=== PATIENT | female | born 1955 | race African-American/Black ===

== ENCOUNTER 2016-08-24 18:23 | Observation (INO) | payer OTHER ==
[~2016-08-24] VITALS: Ht 154.9 cm; Wt 67.0 kg
[~2016-08-24 18:23] MED LIST: ASPI1TAB7 PO; LISI-360 PO; METF1000 PO; PNEU25IN IM; TETA1INJ4 IM; [UNRECOGNIZED DRUG - CODE]; [UNRECOGNIZED DRUG - CODE] FINGER L1
[2016-08-24 18:27] VITALS: BP 241/117; PULSE 72; RESP 16; TEMP 98.1; O2SAT 97
[2016-08-24] MEDS ORDERED: LISI10TA3 PO (19:00)
[2016-08-24] MEDS ORDERED: METF1000 PO (19:00)
[2016-08-24 19:06] LABS: AUTOMATED NEUTROPHIL # 3.8 TH/MM3 (1.8-7.7); BASOPHIL # 0.1 TH/MM3 (0-0.2); BASOPHIL % 0.7 % (0.0-2.0); EOSINOPHIL # 0.1 TH/MM3 (0-0.4); EOSINOPHIL % 0.9 % (0.0-4.0); HEMATOCRIT 41.1 % (35.0-46.0); HEMO FLAGS DIFF FINAL; LYMPH % 42.3 % (9.0-44.0); LYMPHOCYTE # 3.2 TH/MM3 (1.0-4.8); MEAN CELL VOLUME 81.6 FL (80.0-100.0); MEAN CORPUSCULAR HEMOGLOBIN 26.9 PG (27.0-34.0); MONO % 6.7 % (0.0-8.0); NEUT % 49.4 % (16.0-70.0); PLATELET COUNT 227 TH/MM3 (150-450); RED BLOOD COUNT 5.04 MIL/MM3 (4.00-5.30); RED CELL DISTRIBUTION WIDTH 13.7 % (11.6-17.2); WHITE BLOOD COUNT 7.7 TH/MM3 (4.0-11.0)
[2016-08-24 19:08] LABS: ANION GAP 8 MEQ/L (5-15); BICARBONATE 27.2 MEQ/L (21.0-32.0); BLOOD UREA NITROGEN 18 MG/DL (7-18); CHLORIDE 106 MEQ/L (98-107); GLOMERULAR FILTRATION RATE 97 ML/MIN (>89); POTASSIUM 3.9 MEQ/L (3.5-5.1); SODIUM (NA) 141 MEQ/L (136-145)
[2016-08-24 19:12] LABS: CREATINE KINASE 110 U/L (26-192)
--- NOTE | 2016-08-24 19:13 | PD ---
HPI Chief Complaint: Chest Pain Time Seen by Provider: 19:10 Travel History International Travel<30 days: No Contact w/Intl Traveler<30days: No Traveled to known affect area: No History of Present Illness HPI Patient comes in complaining of chest pain ongoing for approximately 7 days. Patient's pain is substernal without radiation. Patient reports associated headache with this and occasional shortness of breath. Patient states she's taken Aleve for this to help with her headache. Patient went to her primary care doctors today was sent to the emergency department further treatment and evaluation. Patient denies any diaphoresis, back pain, numbness tingling, nausea, vomiting, cough, abdominal pain, or fevers. Patient denies any history of cardiac issues or ever having a stress test. Patient states she did not take her hypertensive medication yet today and normally takes in the evening. PFSH Past Medical History Diabetes: Yes Hypertension: Yes Past Surgical History Section: Yes Hysterectomy: Yes Social History Alcohol Use: No Tobacco Use: No Substance Use: No Allergies-Medications (Allergen,Severity, Reaction): Coded Allergies: No Known Allergies (Unverified , 08/24/16) Reported Meds & Prescriptions Reported Meds & Active Scripts Active Reported Lisinopril 10 Mg Tab 10 Mg PO HS PRN Metformin (Metformin HCl) 1,000 Mg Tab 1,000 Mg PO BIDPC With meals Review of Systems Except as stated in HPI: all other systems reviewed are Neg Physical Exam Narrative GENERAL: Well-developed, overly nourished, in no acute distress, and non-ill appearing. SKIN: Warm and dry. HEAD: Atraumatic. Normocephalic. EYES: Pupils equal and round. EOMI. No scleral icterus. No injection or drainage. ENT: No nasal bleeding or discharge. Mucous membranes pink and moist. NECK: Trachea midline. Supple. No nuclear rigidity. CARDIOVASCULAR: Regular rate and rhythm. No murmur appreciated. RESPIRATORY: No accessory muscle use. No respiratory distress. Clear to auscultation. Breath sounds equal bilaterally. GASTROINTESTINAL: Abdomen soft, non-tender, nondistended. Hepatic and splenic margins not palpable. No pulsatile mass. MUSCULOSKELETAL: No obvious deformities. No clubbing. No cyanosis. No edema. Full range of motion. NEUROLOGICAL: Awake and alert. No obvious cranial nerve deficits. Motor grossly within normal limits. Normal speech. PSYCHIATRIC: Appropriate mood and affect; insight and judgment normal. Data Data Last Documented VS Vital Signs Date Time Temp Pulse Resp B/P Pulse Ox O2 Delivery O2 Flow Rate FiO2 08/24/16 20:05 81 20 173/87 99 Room Air 08/24/16 18:27 98.1 Orders Electrocardiogram (08/24/16 18:34) Complete Blood Count With Diff (08/24/16 18:34) Basic Metabolic Panel (Bmp) (08/24/16 18:34) Ckmb (Isoenzyme) Profile (08/24/16 18:34) Troponin I (08/24/16 18:34) Iv Access Insert/Monitor (08/24/16 18:34) Magnesium (Mg) (08/24/16 19:06) Prothrombin Time / Inr (Pt) (08/24/16 19:06) Act Partial Throm Time (Ptt) (08/24/16 19:06) Chest, Single Ap (08/24/16 19:06) Ecg Monitoring (08/24/16 19:06) Bilateral Bp Monitoring (08/24/16 19:06) Oximetry (08/24/16 19:06) Oxygen Administration (08/24/16 19:06) Aspirin Chew (Aspirin Chew) (08/24/16 19:15) Nitroglycerin 2% Oint (Nitroglycerin 2% (08/24/16 19:15) Sodium Chloride 0.9% Flush (Ns Flush) (08/24/16 19:15) CKMB (08/24/16 18:40) CKMB% (08/24/16 18:40) Hydralazine Inj (Apresoline Inj) (08/24/16 20:00) Metoprolol Tartrate (Lopressor) (08/24/16 20:00) Lisinopril (Prinivil) (08/24/16 20:00) Admit Order (Ed Use Only) (08/24/16 20:20) Place In Observation (08/24/16 20:20) Activity Bed Rest With Brp (08/24/16 20:20) Vital Signs (Adult) Q4H (08/24/16 20:20) Cardiac Rhythm .As Directed (08/24/16 20:20) ^ Notify Dr: Other .PRN (08/24/16 20:20) ^ Notify Dr. Parameters (08/24/16 20:20) Resp Oxygen Nasal Cannula (08/24/16 ) Ckmb (Isoenzyme) Profile (08/24/16 21:40) Ckmb (Isoenzyme) Profile (08/25/16 00:40) Troponin I (08/24/16 21:40) Troponin I (08/25/16 00:40) Electrocardiogram (08/24/16 21:40) Electrocardiogram (08/25/16 00:40) ^ Obtain (08/24/16 20:20) Sodium Chloride 0.9% Flush (Ns Flush) (08/24/16 20:30) Sodium Chloride 0.9% Flush (Ns Flush) (08/24/16 21:00) Circus Supervisor / Telemetry GEORGETTE.Q8H (08/24/16 20:20) Labs Laboratory Tests Test 08/24/16 08/24/16 18:40 19:24 White Blood Count 7.7 TH/MM3 Red Blood Count 5.04 MIL/MM3 Hemoglobin 13.5 GM/DL Hematocrit 41.1 % Mean Corpuscular Volume 81.6 FL Mean Corpuscular Hemoglobin 26.9 PG Mean Corpuscular Hemoglobin 33.0 % Concent Red Cell Distribution Width 13.7 % Platelet Count 227 TH/MM3 Mean Platelet Volume 9.1 FL Neutrophils (%) (Auto) 49.4 % Lymphocytes (%) (Auto) 42.3 % Monocytes (%) (Auto) 6.7 % Eosinophils (%) (Auto) 0.9 % Basophils (%) (Auto) 0.7 % Neutrophils # (Auto) 3.8 TH/MM3 Lymphocytes # (Auto) 3.2 TH/MM3 Monocytes # (Auto) 0.5 TH/MM3 Eosinophils # (Auto) 0.1 TH/MM3 Basophils # (Auto) 0.1 TH/MM3 CBC Comment DIFF FINAL Differential Comment Sodium Level 141 MEQ/L Potassium Level 3.9 MEQ/L Chloride Level 106 MEQ/L Carbon Dioxide Level 27.2 MEQ/L Anion Gap 8 MEQ/L Blood Urea Nitrogen 18 MG/DL Creatinine 0.74 MG/DL Estimat Glomerular Filtration 97 ML/MIN Rate Random Glucose 95 MG/DL Calcium Level 8.5 MG/DL Magnesium Level 2.2 MG/DL Total Creatine Kinase 110 U/L Creatine Kinase MB 1.9 NG/ML Troponin I LESS THAN 0.02 NG/ML Prothrombin Time 10.9 SEC Prothromb Time International 1.0 RATIO Ratio Activated Partial 25.4 SEC Thromboplast Time MDM Medical Decision Making Medical Screen Exam Complete: Yes Emergency Medical Condition: Yes Interpretation(s) EKG reviewed by Dr. Garvey, shows normal sinus rhythm with a ventricular rate is 78. No STEMI and no acute changes. Differential Diagnosis Acute coronary syndrome, uncontrolled hypertension, atypical chest pain, pneumonia, other Narrative Course 1943 patient reports improvement of her chest pain status post nitro paste being applied. Patient seen and examined. Initial laboratory and radiological studies were obtained and reviewed. Discussed patient with Dr. Pope, who is in agreement with plan of care and disposition. Patient will be placed in the chest pain center for further treatment and evaluation. Discussed all findings and plan of care with patient who is agreeable for admission. All questions were answered. Diagnosis Primary Impression: Chest pain Qualified Code: R07.9 - Chest pain, unspecified type Admitting Information Admitting Physician Requests: Observation Condition: Stable Randy Willoughby Aug 24, 2016 19:13
[2016-08-24] MEDS ORDERED: NITROGLYCERIN 2% OINT 1 GM PACKET TOP ONE (19:15)
[2016-08-24] MEDS ORDERED: SODIUM CHLORIDE 0.9% FLUSH 5 ML FLUSH IVF PRN ×2 (19:15→20:30)
[2016-08-24] MEDS ORDERED: ASPIRIN 81 MG CHEW TAB PO ONE (19:15)
[2016-08-24 19:19] VITALS: BP 190/143; PULSE 77; RESP 18; O2SAT 99
[2016-08-24 19:51] LABS: APTT (PATIENT) 25.4 SEC (24.3-30.1); PROTHROMBIN TIME - PATIENT 10.9 SEC (9.8-11.6)
--- NOTE | 2016-08-24 19:51 | RADRPT ---
EXAM DATE/TIME: 08/24/2016 19:24 [facility] COMPARISON: No previous studies available for comparison. INDICATIONS : Chest pressure for several days. MEDICAL HISTORY : Hypertension. SURGICAL HISTORY : None. ENCOUNTER: Initial ACUITY: 3 days PAIN SCORE: 2/10 LOCATION: Bilateral chest FINDINGS: A single view of the chest demonstrates the lungs to be symmetrically aerated without evidence of mas s, infiltrate or effusion. Left basilar subsegmental atelectasis. The cardiomediastinal contours are unremarkable. Osseous structures are intact. CONCLUSION: 1. Left basilar subsegmental atelectasis. 2. No pneumonia. Fermin Teixeira MD on August 24, 2016 at 19:49 Board Certified Radiologist. This report was verified electronically.
[2016-08-24 20:00] LABS: CKMB 1.9 NG/ML (0.5-3.6)
[2016-08-24] MEDS ORDERED: LISINOPRIL 20 MG TAB PO ONE (20:00)
[2016-08-24] MEDS ORDERED: METOPROLOL TARTRATE 50 MG TAB PO ONE (20:00)
[2016-08-24] MEDS ORDERED: hydrALAZINE HCL 20 MG/ML VIAL IV PUSH ONE (20:00)
[2016-08-24 20:05] VITALS: BP 173/87; PULSE 81; RESP 20; O2SAT 99
[2016-08-24] MEDS: SODIUM CHLORIDE 0.9% FLUSH 5 ML FLUSH IVF SCH (21:00)
[2016-08-24 22:43] VITALS: BP 142/94
[2016-08-24 23:01] LABS: CREATINE KINASE 96 U/L (26-192)
[2016-08-24 23:39] VITALS: PULSE 71
[2016-08-24 23:46] VITALS: BP 195/91; PULSE 69; RESP 18; O2SAT 97
[2016-08-25 00:37] VITALS: BP 189/84
[2016-08-25 01:07] LABS: CREATINE KINASE 114 U/L (26-192)
[2016-08-25 01:19] LABS: CKMB 1.5 NG/ML (0.5-3.6)
[2016-08-25 02:29] VITALS: BP_SYST 175; BP_DIAS 78; BP_DIAS 82; PULSE 68
[2016-08-25 02:30] VITALS: PULSE 70
[2016-08-25 06:36] VITALS: BP 160/72; PULSE 74; RESP 18; TEMP 97.6; O2SAT 97
[2016-08-25 06:45] VITALS: O2SAT 95
[2016-08-25 08:00] VITALS: PULSE 80
[2016-08-25] MEDS ORDERED: NITROGLYCERIN 0.4 MG SL 25 TABS/BTL SL PRN (09:00)
[2016-08-25] MEDS ORDERED: ACETAMINOPHEN 500 MG CPLT PO PRN (09:00)
[2016-08-25] MEDS ORDERED: ONDANSETRON HCL 4 MG/2 ML VIAL IV PRN (09:00)
[2016-08-25] MEDS ORDERED: ASPIRIN 325 MG TAB PO SCH (10:00)
[2016-08-25] MEDS ORDERED: metFORMIN HCL 500 MG TAB PO SCH (10:00)
[2016-08-25] MEDS ORDERED: LISINOPRIL 10 MG TAB PO SCH (10:00)
[2016-08-25] MEDS ORDERED: amLODIPine BESYLATE 5 MG TAB PO SCH (10:00)
[2016-08-25] MEDS: SODIUM CHLORIDE 0.9% FLUSH 5 ML FLUSH IVF SCH (10:12)
--- NOTE | 2016-08-25 10:46 | RADRPT ---
EXAM DATE/TIME: 08/25/2016 08:16 [facility] COMPARISON: No previous studies available for comparison. INDICATIONS : Substernal chest pain for 7 days. Angina DOSE: 25.8 mCi Tc99m Myoview at stress 8.2 mCi Tc99m Myoview at rest REST HEART RATE: 86 BPM TARGET HEART RATE: 137 BPM MAX HEART RATE: 144 BPM REST BLOOD PRESSURE: 182/78 mmHg MAX BLOOD PRESSURE: 250/90 mmHg EJECTION FRACTION: 65% MEDICAL HISTORY : Hypertension. Diabetes mellitus type 2. SURGICAL HISTORY : Hysterectomy. section. ENCOUNTER: Initial ACUITY: 1 week PAIN SCALE: 4/10 LOCATION: Substernal chest TECHNIQUE: The patient underwent upright treadmill exercise in the chest pain center. Continuous ECG tracing wa s monitored during stress. Gated SPECT imaging was performed after stress, and conventional SPECT im aging was performed at rest. The examination was performed on a SPECT/CT scanner, both attenuation-c orrected and non-corrected datasets were reviewed. FINDINGS: DISTRIBUTION: The maximum perfused segment at stress is in the lateral wall. PERFUSION STUDY: The pattern of perfusion at stress is within normal limits. GATED STUDY: There is intact wall motion and thickening without hypokinetic or dyskinetic segments. CONCLUSION: 1. Unremarkable myocardial perfusion scan. RISK CATEGORY: Low (<1% Annual Mortality Rate) Quinton Gasca MD on August 25, 2016 at 10:43 Board Certified Radiologist. This report was verified electronically.
--- NOTE | 2016-08-25 11:07 | HHI.DCPOC ---
Discharge Care Plan Diagnosis: (1) Atypical chest pain (2) Hypertension Goals to Promote Your Health * To prevent worsening of your condition and complications * To maintain your health at the optimal level Directions to Meet Your Goals Take your medications as prescribed Follow your dietary instruction Follow activity as directed Keep your appointments as scheduled Take your immunizations and boosters as scheduled If your symptoms worsen call your PCP, if no PCP go to Urgent Care Center or Emergency Room Smoking is Dangerous to Your Health. Avoid second hand smoke Call the 24-hour hour crisis hotline for domestic abuse at Gena Pelaez Aug 25, 2016 11:07
[2016-08-25] MEDS ORDERED: AMLO5 PO (11:16)
[2016-08-25] MEDS ORDERED: METO-309 PO (11:16)
[2016-08-25] MEDS ORDERED: LISI-515 PO (11:16)
[2016-08-25] MEDS ORDERED: METF500T PO (11:16)
--- NOTE | 2016-08-25 11:59 | MH ---
cc: FREDDIE THOMAS MD DATE OF ADMISSION: 08/24/2016 DATE OF : 1955 CHIEF COMPLAINT Chest pressure. HISTORY OF PRESENT ILLNESS This is a 61-year-old patient with known hypertension and diabetes presents to the emergency room by the direction of her primary care provider. The patient has been experiencing constant chest pressure located in her left anterior chest wall and epigastric area. This has been constant since last . There is no associated symptoms. The patient felt that she was developing a "lung infection" as follows with her primary care provider yesterday, at that time her blood pressure was elevated and EKG was completed which the primary physician was concerned about and directed her to follow with followup in the emergency room. No known precipitating factors or relieving factors. PAST MEDICAL HISTORY: Past medical history includes diabetes Hypertension Fibroids. PAST SURGICAL HISTORY Partial hysterectomy in 2000 She has had two C-sections She did have one blood transfusion with her partial hysterectomy surgery. FAMILY HISTORY: The family history is noncontributory for any early onset cardiovascular disease, although multiple people in her family due to have diabetes and high blood pressure. SOCIAL HISTORY She is active. She has a lifelong nonsmoker. Denies any alcohol or illegal drug use. Does have known hypertension, diabetes. No known hyperlipidemia. Her primary care provider is Dr. Grant. PAST CARDIAC TESTING: None. MEDICATIONS Current medications include 1. Lopressor 50 mg daily. 2. Norvasc 5 mg daily. 3. Lisinopril 20 mg b.i.d. 4. Metformin 500 mg b.i.d. 5. In regards to the Metoprolol, Norvasc and lisinopril. These were all new prescriptions and or changes to her medication regimen that was ordered yesterday while at her primary care provider and she has not yet to filled these medications. Prior to these new changes in her medication she was taking. 6. Lisinopril 10 mg daily and metformin 500 mg b.i.d. ALLERGIES no known allergies to medication. REVIEW OF SYSTEMS GENERAL: Reports occasional fatigue. She believes this is the possibly due to her blood sugar she tries to eat on a regular basis to normalize her sugar although when she is unable to she noticed she does become fatigued. She has not had any recent illness, fevers, chills or change in appetite. HEAD, EYES, EARS, NOSE, AND THROAT: Reports an occasional headache and back of her head and neck area also relates this to when she does not eat and when she eats the headaches generally subsides there is no visual changes or dysphagia. CARDIOVASCULAR SYSTEM: As stated above. Denies any intermittent leg pain or dizziness. RESPIRATORY: No shortness of breath, cough, wheeze, hemoptysis or asthma. ABDOMEN: No bowel changes, diarrhea, constipation pain distension, blood in stool or dark stool or nausea or vomiting. She has never had a colonoscopy however recently has been approved for affordable care insurance and plans have a colonoscopy as her grandmother is suspected of having colon cancer although did not tell anyone she had colon cancer and therefore she has a family history. GENITOURINARY: No dysuria or urgency, frequency or hematuria. EXTREMITIES: No lower leg edema of pain. MUSCULOSKELETAL: No change in range of motion or discomfort. NEUROLOGIC: There is no change in motor or sensory deficits, difficulty with balance, change in memory loss of consciousness. PSYCHIATRIC: Psych no anxiety or depression. SKIN: There are no concerning lesions or rashes. PHYSICAL EXAMINATION VITAL SIGNS: Temperature 98.1, pulse 72, respiratory 16, pulse oximetry 97% on room air, 160/72 blood pressure is noted blood pressure on admission 241/117 anything 190/143. IN GENERAL: She is alert, well-nourished, well-developed in no acute distress pleasant -[place] female. HEAD, EYES, EARS, NOSE, AND THROAT: Head: Normocephalic, atraumatic. Eyes: Sclerae clear. Conjunctivae without injection. Pupils are equal and round. NECK: Neck is supple. Trachea is midline. CARDIOVASCULAR SYSTEM: Shows regular rate and rhythm without murmur or gallop. No JVD. S1-S2. No S3. No ST or cardial RESPIRATORY: Clear lungs throughout bilateral with no crackles, wheeze or rhonchi. She has symmetrical chest rise. Able to speak in full sentences with a symmetrical chest rise. ABDOMEN: Abdomen is soft, nontender, nondistended. Positive bowel tones. No masses. EXTREMITIES: Pulses +2 x4. There is no dependent edema. MUSCULOSKELETAL: No obvious deformities. She is nontender, normal tone x4. NEUROLOGIC: Cranial nerves II-XII grossly intact. Motor strength 5/5 gait is within normal limits. PSYCHIATRIC: Psych she is alert, oriented x3 has a pleasant affect appropriate to mood, insight and judgment. SKIN: Normal turgor, normal texture. No lesions or rashes. Skin is warm and dry. LABORATORY CBC is unremarkable. Chemistry is unremarkable. Three sets of cardiac enzymes are negative. Coagulation is unremarkable. Chest x-ray read by the radiologist has conclusion of left bibasilar segmental atelectasis. No pneumonia Three EKG's showed normal sinus rhythm with no ST or T segment changes. Two out of her three EKG's do show a Q-wave in V1 and V2 this is unchanged from of EKG's we reviewed in 2013. ASSESSMENT/PLAN 1. Chest pain. Patient has been admitted to the chest pain center. She was ruled out with three sets of EKG's, cardiac enzymes and seen evaluated by Dr. Freddie Thomas. It has been discussed with the patient and advised for her to have a nuclear treadmill study test this a.m. and she is agreeable to this plan of care actually is a stress test is unremarkable she will be encouraged to follow up with her primary care provider in regards to her hypertension. She is agreeable to this plan of care. 2. Hypertension. Have will continue to monitor the patient's blood pressure and her lisinopril amlodipine have been reordered. We will encourage her to keep a blood pressure log and take her new prescription medications from a primary care provider as directed and to follow up with her in 2 weeks at her previously scheduled appointment to follow a low-salt diet. 3. Diabetes; encourage daily exercise of 20-30 minutes. And reordered her metformin 500 mg b.i.d. Dictated by JULIO Miranda MD DOMENICA Jean/libertad /10:48 AM 11:58 AM
--- NOTE | 2016-08-25 15:44 | EKG ---
Date Performed: 08/25/2016 Time Performed: 00:41:16 PTAGE: 61 years EKG: Sinus rhythm ABNORMAL ECG PREVIOUS TRACING : 08/24/2016 18.36 Since previous tracing, no significant change noted DOCTOR: Quinton Vinson Interpretating Date/Time 08/25/2016 15:42:22
--- NOTE | 2016-08-25 15:44 | EKG ---
Date Performed: 08/24/2016 Time Performed: 21:54:03 PTAGE: 61 years EKG: Sinus rhythm ABNORMAL ECG NO PREVIOUS TRACING DOCTOR: Quinton Vinson Interpretating Date/Time 08/25/2016 15:42:57
--- NOTE | 2016-08-25 15:45 | EKG ---
Date Performed: 08/24/2016 Time Performed: 18:36:59 PTAGE: 61 years EKG: Sinus rhythm ABNORMAL ECG PREVIOUS TRACING : 04/10/2014 10.35 Since previous tracing, no significant change noted DOCTOR: Quinton Vinson Interpretating Date/Time 08/25/2016 15:43:48
--- NOTE | 2016-08-25 16:06 | TR ---
Date Performed: 08/25/2016 Time Performed: 08:59:05 DOCTOR: Quinton Vinson DRUG LIST: CLINICAL HISTORY: CHEST PAIN REASON FOR TEST: Chest pain REASON FOR ENDING: OBSERVATION: CONCLUSION: Cliff protocol completed. Stopped sec to reaching target heart rate and leg fatigue. Maximum MZ=337 % Target HR Achieved=89.0% Total Exercise Time=5:01 Maximum UP=823/90. No reprod ches t discomfort. Hypertensive bp response. Recovery quick and unremarkable. Nuclear images pending. COMMENTS: Patient exercised using the Cliff protocol. No electrocardiographic changes were seen to suggest ischemia. Hemodynamic response to exercise was normal. No significant arrhythmia was prese nt.
== END 2016-08-25 13:40 | disposition home or self-care (01) ==
LOC: NEPC 18:23 → NEDA 20:24 → NEPFCDU 23:03
PROVIDERS: ADMIT Internal Medicine Cardiovascular Disease; ATTEND Internal Medicine Cardiovascular Disease
DX: R07.89 Other chest pain (principal); I10 Essential (primary) hypertension; E11.9 Type 2 diabetes mellitus without complications; D21.9 Benign neoplasm of connective and other soft tissue, unspecified; R51 Headache; R06.02 Shortness of breath
CPT/HCPCS: 71010; 78452; 80048; 82550; 82552; 83735; 84484; 85025; 85610; 85730; 93005; 93017; 99285; A9502; G0378